=== PATIENT | male | born 1930 | race Caucasian/White ===

== ENCOUNTER 2019-02-20 09:13 | Emergency (ER) | payer MEDICARE, OTHER ==
[2019-02-20 11:05] LABS: ANION GAP 13.3; CHLORIDE,CL 100 mmol/L (101-111); SODIUM,NA 139 mmol/L (135-145)
--- NOTE | 2019-02-20 11:25 | EDM.PDOC ---
ED HPI GENERAL MEDICAL PROBLEM - General Chief Complaint: Lower Extremity Injury/Pain Stated Complaint: FELL ON LEFT SIDE PER PT Time Seen by Provider: 02/20/19 10:13 Source of Information: Reports: Patient, RN, RN Notes Reviewed History Limitations: Reports: No Limitations - History of Present Illness INITIAL COMMENTS - FREE TEXT/NARRATIVE: Pt to ER with c/o fall in driveway at his home 7 days ago. Denies LOC. Bruising to left eye, cut above left eye brow. States yesterday the left ankle began hurting. States he has been icing it with no help. Denies any more swelling than usual to the area, but states he feels it is getting more red about mid busch area. There is abrasion and scabbing noted to the left knee. 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 Denies recent fever or chills. 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 Also has scaling of the skin from mid busch down to ankle bilaterally. Admits to hx of Rheumatoid Arthritis. Onset: Sudden Onset Date: 02/13/19 - Related Data Allergies Allergy/AdvReac Type Severity Reaction Status Date / Time No Known Allergies Allergy Verified 02/20/19 09:21 Home Meds: Home Meds Aspirin/Calcium Carbonate/Mag [Aspirin Buffered 325 mg Tab] 325 mg ORAL.INH DAILY 06/04/14 [History] Calcium Carb & Citrate/Vit D3 [Calcium + D3 ER Tablet] 1 mg PO DAILY 06/04/14 [ History] Folic Acid 0.8 mg PO DAILY 06/04/14 [History] Methotrexate Sodium [Methotrexate] 20 mg PO ASDIRECTED 06/04/14 [History] Minocycline HCl 50 mg PO BID 06/04/14 [History] Sennosides/Docusate Sodium [Stool Softener] 1 cap ORAL.INH DAILY 06/04/14 [ History] Diclofenac Sodium [Voltaren 0.1% Ophth Soln] 2.5 ml TOP DAILY 02/20/19 [History] Fish Oil/Meldrim-3 Fatty Acids [Fish Oil 1,000 MG] 1 each PO 02/20/19 [History] Past Medical History HEENT History: Reports: Impaired Vision Cardiovascular History: Reports: None Respiratory History: Reports: None Gastrointestinal History: Reports: None Genitourinary History: Reports: None Neurological History: Reports: None Psychiatric History: Reports: None Endocrine/Metabolic History: Reports: None Hematologic History: Reports: None Immunologic History: Reports: None Oncologic (Cancer) History: Reports: None Dermatologic History: Reports: None - Infectious Disease History Infectious Disease History: Reports: None - Past Surgical History Head Surgeries/Procedures: Reports: None Musculoskeletal Surgical History: Reports: Hip Replacement, Knee Replacement Social & Family History - Family History Family Medical History: Noncontributory - Tobacco Use Smoking Status *Q: Never Smoker Second Hand Smoke Exposure: No - Caffeine Use Caffeine Use: Reports: Coffee - Recreational Drug Use Recreational Drug Use: No Review of Systems - Review of Systems Review Of Systems: ROS reveals no pertinent complaints other than HPI. ED EXAM, GENERAL - Physical Exam Exam: See Below Exam Limited By: No Limitations General Appearance: Alert, WD/WN, No Apparent Distress Eye Exam: Bilateral Eye: Normal Inspection Ears: Normal External Exam, Hearing Grossly Normal Nose: Normal Inspection Throat/Mouth: Normal Inspection, Normal Voice, No Airway Compromise Head: Atraumatic, Normocephalic Neck: Normal Inspection, Supple, Non-Tender, Full Range of Motion Respiratory/Chest: No Respiratory Distress, Lungs Clear, Normal Breath Sounds, No Accessory Muscle Use, Chest Non-Tender Cardiovascular: No Gallop, No JVD, No Murmur, No Rub, Irregularly Irregular, Other (trace pedal/ankle edema) Peripheral Pulses: 2+: Radial (L), Radial (R), Dorsalis Pedis (L), Dorsalis Pedis (R) GI/Abdominal: Normal Bowel Sounds, Soft, Non-Tender, No Organomegaly, No Distention (Male) Exam: Deferred Rectal (Males) Exam: Deferred Back Exam: Normal Inspection, Decreased Range of Motion Extremities: Other (Scattered black pigmentation to lower extremities, as well as severe scaling of skin to the lower extremities, mid busch and down) Neurological: Alert, Oriented, CN II-XII Intact, Normal Cognition, Normal Gait, Normal Reflexes, No Motor/Sensory Deficits Psychiatric: Normal Affect, Normal Mood Skin Exam: Warm, Dry, Other (see note in extremity regarding skin of lower legs) Lymphatic: No Adenopathy Course - Vital Signs Last Recorded V/S: Last Vital Signs Temp 98.6 F 02/20/19 09:24 Pulse 98 02/20/19 09:24 Resp 18 02/20/19 09:24 BP 142/83 H 02/20/19 09:24 Pulse Ox 100 02/20/19 09:24 - Orders/Labs/Meds Labs: Laboratory Tests 02/20/19 02/20/19 Range/Units 10:38 10:38 WBC 7.6 (5.0-10.0) 10^3/uL RBC 4.75 (4.6-6.2) 10^6/uL Hgb 15.2 (14.0-18.0) g/dL Hct 45.6 (40.0-54.0) % MCV 96.0 (80-100) fL MCH 32.0 (27.0-34.0) pg MCHC 33.3 (33.0-35.0) g/dL Plt Count 147 L (150-450) 10^3/uL Neut % (Auto) 65.0 (42.2-75.2) % Lymph % (Auto) 19.1 L (20.5-50.1) % [place] % (Auto) 14.4 H (2-8) % Eos % (Auto) 1.1 (1.0-3.0) % Baso % (Auto) 0.4 (0.0-1.0) % Sodium 139 (135-145) mmol/L Potassium 4.3 (3.6-5.0) mmol/L Chloride 100 L (101-111) mmol/L Carbon Dioxide 30.0 (21.0-31.0) mmol/L Anion Gap 13.3 BUN 16 (7-18) mg/dL Creatinine 0.9 (0.6-1.3) mg/dL Est Cr Clr Drug Dosing 49.35 mL/min Estimated GFR (MDRD) > 60 BUN/Creatinine Ratio 17.77 Glucose 84 (74-105) mg/dL Calcium 9.0 (8.4-10.2) mg/dl Total Bilirubin 1.6 H (0.2-1.0) mg/dL AST 27 (10-42) IU/L ALT 15 (10-60) IU/L Alkaline Phosphatase 61 (42-121) IU/L Total Protein 7.3 (6.7-8.2) g/dl Albumin 3.7 (3.2-5.5) g/dl Globulin 3.6 Albumin/Globulin Ratio 1.03 - Radiology Interpretation Free Text/Narrative:: Left ankle xray: FINDINGS: Bones/joints: Moderate narrowing of the ankle mortise at the lateral aspect. There is a prominent plantar calcaneal enthesophyte. Moderately severe degenerative changes at the dorsal tarsal bones. Pes planus. Moderate degenerative changes at the tibial articular surface. There is no evidence of acute displaced fracture or dislocation. Soft tissues: There is soft tissue swelling appreciated. IMPRESSION: 1. Moderate narrowing of the ankle mortise at the lateral aspect. 2. Degenerative changes. 3. No acute displaced fracture Thank you for allowing us to participate in the care of your patient. Dictated and Authenticated by: Doug Sandy MD 02/20/2019 11:15 AM Central Time ([place] & [place]) See rad report Departure - Departure Time of Disposition: 11:22 Disposition: Home, Self-Care 01 Condition: Fair Clinical Impression: Sprain of ankle, left Qualifiers: Encounter type: initial encounter Involved ligament of ankle: unspecified ligament Qualified Code(s): S93.402A - Sprain of unspecified ligament of left ankle, initial encounter Fall at home Qualifiers: Encounter type: initial encounter Qualified Code(s): W19.XXXA - Unspecified fall, initial encounter - Discharge Information *PRESCRIPTION DRUG MONITORING PROGRAM REVIEWED*: No *COPY OF PRESCRIPTION DRUG MONITORING REPORT IN PATIENT NIEVES: No Instructions: How to Use a Stirrup Ankle Brace, [id number], Ankle Sprain, [id number] Forms: ED Department Discharge Additional Instructions: Elevate left ankle when able Ice area as tolerated May use stirrup ankle brace as tolerated Follow up with your primary care facility May use Tylenol as directed for pain
== END 2019-02-20 11:40 | disposition home or self-care (01) ==
LOC: DL.ED 09:13
DX: S93.402A Sprain of unspecified ligament of left ankle, initial encounter (principal); Z79.82 Long term (current) use of aspirin; Z79.899 Other long term (current) drug therapy; W19.XXXA Unspecified fall, initial encounter; Y92.093 Driveway of other non-institutional residence as the place of occurrence of the external cause
CPT/HCPCS: 36415; 73610-LT; 80053; 85025; 99284-25